=== PATIENT | male | born 1990 | race Caucasian/White ===

== ENCOUNTER 2021-09-09 23:04 | Emergency (ER) | payer OTHER, SELFPAY ==
--- NOTE | ~2021-09-09 | XR_ITS ---
EXAMINATION: XR CHEST CLINICAL INFORMATION: Chest pain COMPARISON: X-ray 11/22/2014 TECHNIQUE: Frontal view of the chest was obtained. FINDINGS: The lungs are well-expanded. There is no focal consolidation, edema or effusion. No pneumothorax. The cardiomediastinal silhouette is within normal limits. No acute osseous abnormality. XR/XR chest 1V IMPRESSION: No acute pulmonary disease.
[2021-09-09 23:32] LABS: COVID-19 Test Negative (Negative)
[2021-09-10 00:14] VITALS: BP 122/81; PULSE 83; RESP 16; TEMP 37.1; O2SAT 95; BMI 25.9
--- NOTE | 2021-09-10 00:17 | ED_ITS ---
HPI - URI/Sore Throat General Chief Complaint: General Medical Stated Complaint: Covid symptoms Time Seen by Provider: 09/10/21 00:16 Source: patient Mode of arrival: ambulatory Limitations: no limitations History of Present Illness MD elicited complaint: fever and other (doesn't feel well) Onset (ago): day(s) (3) Consistency: intermittent Severity: moderate Able to tolerate fluids by mouth: Yes Exacerbating factors: nothing Relieving factors: nothing Context: other (vaccine 3 weeks ago ) Associated symptoms: fever (only at night up to 101), myalgias, cough, shortness of breath and other (n/v) Treatments prior to arrival: none Related Data Previous Rx's Medication Instructions Recorded doxycycline hyclate 100 mg capsule 100 mg PO BID 10 Days #20 cap 09/10/21 Allergies Allergy/AdvReac Type Severity Reaction Status Date / Time PEANUT BUTTER Allergy Intermediate RASH, SOB Uncoded 08/18/20 16:06 PEANUTS Allergy Unknown ANAPHYLAXIS Uncoded 04/26/17 00:00 Review of Systems Review of Systems: Constitutional : No Weight loss, pos Fever, No Chills, pos Fatigue, pos Malaise ENT/Mouth : No sore throat, No Rhinorrhea Eyes: No Eye Pain, No Swelling, No Redness Cardiovascular : No Chest Pain, pos SOB, No Dyspnea on Exertion, No Orthopnea, No Edema, No Palpitations Respiratory : pos Cough, No Sputum, No Wheezing Gastrointestinal : No Nausea, No Vomiting, No Diarrhea, No Constipation, No abdominal Pain, No Hematochezia, No Melena Genitourinary : No Dysuria, No Urinary Frequency, No Hematuria, Musculoskeletal : No joint pain, pos Myalgias, No Joint Swelling Skin : No Skin Lesions, No rash Neuro : pos Weakness, No Numbness, No Dizziness, No Headache Psych : No Anxiety/Panic, No Depression Heme/Lymph: No Bruising, No Bleeding,No Lymphadenopathy Endocrine : No Polyuria, No Polydipsia All other systems reviewed and are negative [facility] Past Medical History Attestation statement: The following information was validated with the patient. Medical History No known health problems Social History Social History (Updated 09/10/21 @ 00:26 by Stefanie Andino DO) Patient Tobacco Use Status: Never used Tobacco Use of substances other than those prescribed or required for medical reasons: No Advance Directives: No Advance Directives Information Provided: Yes Physical Exam Vital Signs: Vital Signs: Last Vital Signs Temp 98.8 F 09/10/21 00:14 Pulse 83 09/10/21 00:14 Resp 16 09/10/21 00:14 BP 122/81 09/10/21 00:14 Pulse Ox 95 09/10/21 00:14 Body Mass Index 25.9 Appearance: Alert. Oriented X3. No acute distress. Eyes: Pupils equal, round and reactive to light. ENT: Pharynx normal. Neck: Normal inspection. Neck supple. CVS: Normal heart rate and rhythm. Pulses normal. Respiratory: No respiratory distress. Breath sounds normal. Abdomen: Soft and nontender. Skin: Skin warm and dry. Normal skin color. Normal skin turgor. Extremities: No lower extremity edema. No calf ttp Neuro: Oriented X 3. No motor deficit. No sensory deficit. Course Course Course Narrative: negative workup - stable for DC at this time will start on empiric doxy just in case he has lyme MDM - URI/Sore Throat MDM Narrative Medical decision making narrative: 31 yo male with a few days of fevers at night, coughing, feels short of breath symptoms at night, denies anything new other than Moderna vaccine he has no CP during the day. At this time he is PERC negative, he denies tick bites. Given his constellation of symptoms will obtain basic labs, lyme test, CXR for pneumonia, EKG and trop for myocarditis - dispo per results and findings. Lab Data Result diagrams: 09/10/21 00:39 09/10/21 00:39 Labs: Lab Results 09/09/21 09/10/21 09/10/21 Range/Units 23:09 00:39 00:39 WBC 9.5 (4.8-10.8) X10*3/uL RBC 5.15 (4.60-5.80) X10*6/uL Hgb 15.4 (14.0-18.0) g/dl Hct 45.9 (42-52) % MCV 89.1 (80-98) fL MCH 29.9 (27.0-33.0) pg MCHC 33.6 (31.0-36.0) g/dl RDW 12.4 (11.0-16.0) % Plt Count 262 (160-400) X10*3/uL MPV 8.9 L (9.4-12.4) fL Immature Gran % (Auto) 0.3 (0.0-0.4) % Neut % (Auto) 66.7 (45-73) % Lymph % (Auto) 16.6 L (20-40) % [place] % (Auto) 12.4 H (2-11) % Eos % (Auto) 3.5 (0-4) % Baso % (Auto) 0.5 (0-2) % Lymph # (Auto) 1.6 (1.2-4.9) X10*3/uL [place] # (Auto) 1.2 (0.1-1.2) X10*3/uL Eos # (Auto) 0.3 (0.0-0.4) X10*3/uL Baso # (Auto) 0.1 (0.0-0.2) X10*3/uL Abs Immat Gran (auto) 0.03 (0.00-0.03) X10*3/uL Absolute Neuts (auto) 6.3 (2.0-8.3) X10*3/uL Absolute Nucleated RBC 0.000 (0.0-0.012) X10*3/uL Nucleated RBC % (auto) 0.0 (0.0-0.2) /100WBC Sodium 140 (135-145) mmol/L Potassium 3.7 (3.3-5.1) mmol/L Chloride 105 (96-108) mmol/L Carbon Dioxide 27 (22-29) mmol/L Anion Gap 12 (12-20) BUN 10 (9-16) mg/dL Creatinine 1.16 (0.5-1.4) mg/dL Estim Creat Clear Calc 100.0 Estimated GFR > 60 Random Glucose 114 (60-115) mg/dL Calcium 9.6 (8.4-10.2) mg/dL Total Bilirubin 0.5 (0.0-1.0) mg/dL Direct Bilirubin 0.2 (0.0-0.5) mg/dL AST 22 (5-37) U/L ALT 32 (0-40) U/L Alkaline Phosphatase 75 (39-117) U/L Troponin I High Sens (<3.5-35.0) ng/L Total Protein 7.2 (6.5-8.0) g/dL Albumin 4.5 (3.5-5.0) g/dL COVID-19 (RUSS) Negative (Negative) COVID-19 Clin Com See Note 09/10/21 Range/Units 00:39 WBC (4.8-10.8) X10*3/uL RBC (4.60-5.80) X10*6/uL Hgb (14.0-18.0) g/dl Hct (42-52) % MCV (80-98) fL MCH (27.0-33.0) pg MCHC (31.0-36.0) g/dl RDW (11.0-16.0) % Plt Count (160-400) X10*3/uL MPV (9.4-12.4) fL Immature Gran % (Auto) (0.0-0.4) % Neut % (Auto) (45-73) % Lymph % (Auto) (20-40) % [place] % (Auto) (2-11) % Eos % (Auto) (0-4) % Baso % (Auto) (0-2) % Lymph # (Auto) (1.2-4.9) X10*3/uL [place] # (Auto) (0.1-1.2) X10*3/uL Eos # (Auto) (0.0-0.4) X10*3/uL Baso # (Auto) (0.0-0.2) X10*3/uL Abs Immat Gran (auto) (0.00-0.03) X10*3/uL Absolute Neuts (auto) (2.0-8.3) X10*3/uL Absolute Nucleated RBC (0.0-0.012) X10*3/uL Nucleated RBC % (auto) (0.0-0.2) /100WBC Sodium (135-145) mmol/L Potassium (3.3-5.1) mmol/L Chloride (96-108) mmol/L Carbon Dioxide (22-29) mmol/L Anion Gap (12-20) BUN (9-16) mg/dL Creatinine (0.5-1.4) mg/dL Estim Creat Clear Calc Estimated GFR Random Glucose (60-115) mg/dL Calcium (8.4-10.2) mg/dL Total Bilirubin (0.0-1.0) mg/dL Direct Bilirubin (0.0-0.5) mg/dL AST (5-37) U/L ALT (0-40) U/L Alkaline Phosphatase (39-117) U/L Troponin I High Sens < 3.5 (<3.5-35.0) ng/L Total Protein (6.5-8.0) g/dL Albumin (3.5-5.0) g/dL COVID-19 (RUSS) (Negative) COVID-19 Clin Com ECG Data Attestation: I personally reviewed and interpreted this ECG as follows: ECG interpretation date: 09/10/21 ECG interpretation time: 01:05 Interpretation: Rate: 82 Rhythm: NSR [place]: normal Normal P waves. Normal [place]. Normal QRS complex. ST T wave : normal no TALIA qTC: normal prior studies: no acute ischemia The study has been interpreted contemporaneously by me. . Discharge Plan Discharge Clinical Impression: Acute viral syndrome Patient Disposition: Home, Self-Care Instructions: Viral Syndrome (ED) Additional Instructions: return to ED for any worsening symptoms or concerns we will call you with your lyme results but it takes 5 to 7 days your covid test and blood working including heart markers were negative, your EKG and chest xray were normal Prescriptions: New doxycycline hyclate 100 mg capsule 100 mg PO BID 10 Days Qty: 20 RF: 0 Referrals: Physician,Unknown J [Primary Care Provider] - 3 days (PCP in 3 days) Stand Alone Forms: Work/School Release
--- NOTE | 2021-09-10 00:22 | ECG_ITS ---
Test Reason : CHEST PAIN Blood Pressure : / mmHG Vent. Rate : 082 BPM Atrial Rate : 082 BPM P-R Int : 154 ms QRS Dur : 080 ms QT Int : 350 ms P-R-T Axes : 045 027 033 degrees QTc Int : 408 ms Normal sinus rhythm with sinus arrhythmia Normal ECG When compared with ECG of 22-NOV-2014 00:50, No significant change was found Referred By: Stefanie Andino Electronically Signed By:FABIOLA SANABRIA MD
[2021-09-10 00:44] LABS: MANUAL DIFF FLAG NO
[2021-09-10 00:46] LABS: Basophils Absolute Auto 0.1 X10*3/uL (0.0-0.2); Basophils Percent Auto 0.5 % (0-2); Eosinophils Absolute Auto 0.3 X10*3/uL (0.0-0.4); Eosinophils Percent Auto 3.5 % (0-4); Hematocrit 45.9 % (42-52); Hemoglobin 15.4 g/dl (14.0-18.0); Imm Gran Abs Auto 0.03 X10*3/uL (0.00-0.03); Imm Gran Pct Auto 0.3 % (0.0-0.4); Lymphocytes Absolute Auto 1.6 X10*3/uL (1.2-4.9); Lymphocytes Percent Auto 16.6 % (20-40); Mean Corpuscular HGB Conc 33.6 g/dl (31.0-36.0); Mean Corpuscular Hemoglobin 29.9 pg (27.0-33.0); Mean Corpuscular Volume 89.1 fL (80-98); Mean Platelet Volume 8.9 fL (9.4-12.4); Monocytes Absolute Auto 1.2 X10*3/uL (0.1-1.2); Monocytes Percent Auto 12.4 % (2-11); Neutrophils Absolute Auto 6.3 X10*3/uL (2.0-8.3); Neutrophils Percent Auto 66.7 % (45-73); Platelet Count 262 X10*3/uL (160-400); Red Blood Count 5.15 X10*6/uL (4.60-5.80); Red Cell Distribution Width 12.4 % (11.0-16.0); White Blood Count 9.5 X10*3/uL (4.8-10.8)
[2021-09-10 01:03] LABS: Alanine Aminotransferase 32 U/L (0-40); Albumin Level 4.5 g/dL (3.5-5.0); Alkaline Phosphatase 75 U/L (39-117); Anion Gap 12 (12-20); Aspartate Amino Transferase 22 U/L (5-37); Bilirubin Direct 0.2 mg/dL (0.0-0.5); Bilirubin Total 0.5 mg/dL (0.0-1.0); Blood Urea Nitrogen 10 mg/dL (9-16); Calcium 9.6 mg/dL (8.4-10.2); Carbon Dioxide 27 mmol/L (22-29); Chloride 105 mmol/L (96-108); Estimated Glomerular Filt Rate > 60; Glucose Random 114 mg/dL (60-115); Potassium 3.7 mmol/L (3.3-5.1); Sodium 140 mmol/L (135-145); Total Protein 7.2 g/dL (6.5-8.0)
[2021-09-10 01:06] LABS: Troponin-I High Sensitivity < 3.5 ng/L (<3.5-35.0)
--- NOTE | 2021-09-10 01:22 | PC.NURSE ---
PT WAS ALREADY D/C BEFORE MEDICATION WAS PUT IN COMPUTER. PT NOTE IN WAITING ROOM. PT MEDICATION SENT TO PHARMACY.
[2021-09-12 01:11] LABS: Lyme Abs Screen <0.90 index
== END 2021-09-10 01:21 | disposition home or self-care (01) ==
PROVIDERS: Emergency Provider Emergency Medicine
DX: B34.9 Viral infection, unspecified (principal); R50.9 Fever, unspecified; M79.10 Myalgia, unspecified site; R05.9 Cough, unspecified; R06.02 Shortness of breath; Z79.899 Other long term (current) drug therapy; Z20.822 Contact with and (suspected) exposure to COVID-19
CPT/HCPCS: 36415; 71045; 80048; 80076; 84484; 85025; 86617; 86618; 87635; 93005; 99283

== ENCOUNTER 2022-02-07 21:10 | Emergency (ER) | payer OTHER, SELFPAY ==
[2022-02-07 21:25] VITALS: BP 145/77; PULSE 68; RESP 16; TEMP 36.6; O2SAT 97; BMI 27.6
--- NOTE | 2022-02-07 22:45 | ED_ITS ---
HPI - Abdominal Pain General Chief Complaint: Abdominal Pain Stated Complaint: Abdominal pain Source: patient Mode of arrival: ambulatory Limitations: no limitations History of Present Illness HPI narrative: 31-year-old male presents with left-sided abdominal pain and diarrhea for approximately 2 days. Loose stools started this morning at around 05:00. Patient stated that he did eat some [employer] food yesterday, does not report any sick contacts. Denies fevers, chills, travel outside the country, nausea, vomi ting, palpitations, chest pain or pressure, or any other concerning symptoms. MD elicited complaint: abdominal pain Onset (ago): day(s) (2) Pain Consistency: constant Location: LLQ Severity: moderate Pain scale (0-10): 4 Quality: cramping and aching Radiation: none Exacerbating factors: bowel movement and movement Relieving factors: nothing Context: possible food poisoning Associated symptoms: diarrhea Related Data Previous Rx's Medication Instructions Recorded doxycycline hyclate 100 mg capsule 100 mg PO BID 10 Days #20 cap 09/10/21 Allergies Allergy/AdvReac Type Severity Reaction Status Date / Time PEANUT BUTTER Allergy Intermediate RASH, SOB Uncoded 08/18/20 16:06 PEANUTS Allergy Unknown ANAPHYLAXIS Uncoded 04/26/17 00:00 Review of Systems Review of Systems Constitutional: No Weight loss, No Fever, No Chills, No Night Sweats, No Fatigue, No Malaise ENT/Mouth: No Hearing loss, No Ear Pain, No Nasal Congestion, No Sinus Pain, No Hoarseness, No sore throat, No Rhinorrhea, No Swallowing Difficulty Eyes: No Eye Pain, No Swelling, No Redness, No Foreign Body, No Discharge, No Vision Changes Cardiovascular: No Chest Pain, No SOB, No Dyspnea on Exertion, No Orthopnea, No Edema, No Palpitations Respiratory: No Cough, No Sputum, No Wheezing, No Smoke Exposure, No Dyspnea Gastrointestinal: No Nausea, no Vomiting, positive Diarrhea, positive abdominal Pain, No Hematochezia, No Melena Genitourinary: no irregular bleeding, No Dysuria, No Urinary Frequency, No Hematuria, No Urinary Incontinence, No Urgency, No Flank Pain, No Urinary Flow Changes, No Hesitancy Musculoskeletal: No joint pain, No Myalgias, No Joint Swelling Skin: No Skin Lesions, No rash Neuro: No Weakness, No Numbness, No Paresthesias, No Loss of Consciousness, No Dizziness, No Headache Psych: No Anxiety/Panic, No Depression, No SI/HI/AH/VH, No Social Issues Heme/Lymph: No Bruising, No Bleeding,No Lymphadenopathy Endocrine: No Polyuria, No Polydipsia, No Temperature Intolerance Yes all other systems are reviewed and are negative [facility] [place] Past Medical History Attestation statement: The following information was validated with the patient. Source: old records reviewed Medical History No known health problems Social History Social History Patient Tobacco Use Status: Never used Tobacco Advance Directives: No Physical Exam ED Vital Signs: Vital Signs - 24 hr 02/07/22 21:25 02/07/22 23:06 Temperature 97.8 F 98 F Pulse Rate 68 64 Respiratory Rate 16 16 Blood Pressure 145/77 H 104/63 Pulse Oximetry 97 98 BMI result Body Mass Index 27.6 Appearance: Alert. Oriented X3. No acute distress. Eyes: Pupils equal, round and reactive to light. EOMI. Sclera nonicteric. ENT: Pharynx normal. Moist mucous membranes. Neck: Normal inspection. Neck supple. CVS: Normal heart rate and rhythm. Respiratory: No respiratory distress. Abdomen: Soft and nontender. Skin: Skin warm and dry. Normal skin color. Normal skin turgor. Extremities: No lower extremity edema. Gait well-balanced well coordinated. Neuro: No motor deficit. No sensory deficit. Cranial nerves 2-12 intact. Course Course Course Narrative: 31-year-old male presents with approximately 2 days of gastrointestinal symptoms after eating [employer] food. Has had 1 episode of loose stools, is afebrile, appears nontoxic, in no prior history of kidney stones or abdominal surgery. Physical exam is unremarkable. Will order lab values, urinalysis, SARs COVID and influenza swab. Should labs indicate infection or abnormality will pursue imaging. At this time patient is able to eat and drink, and patient does agree with this plan. 00:10 CBC chemistry and urinalysis is negative for acute findings requiring emergent intervention. Serology pending. 00:30 SARs influenza COVID negative. Symptoms Most likely due to gastroenteritis or possible food-borne illness. Patient does understand that if symptoms worsen that he should return for further evaluation. Patient verbalized understanding of and agrees to plan of care to discharge home. Verbalized understanding of signs and symptoms indicating need for emergent intervention MDM - Abdominal Pain Differential Diagnosis Differential diagnosis: Likely abdominal pain, gastroenteritis and gastritis Medical Records Attestation: I reviewed the patient's medical records. Lab Data Attestation: I reviewed the patient's lab results. Result diagrams: 02/07/22 23:27 02/07/22 23:27 Labs: Lab Results 02/07/22 02/07/22 02/07/22 Range/Units 23:27 23:27 23:27 WBC 9.4 (4.8-10.8) X10*3/uL RBC 5.19 (4.60-5.80) X10*6/uL Hgb 15.3 (14.0-18.0) g/dl Hct 46.7 (42.0-52.0) % MCV 90.0 (80.0-98.0) fL MCH 29.5 (27.0-33.0) pg MCHC 32.8 (31.0-36.0) g/dl RDW 12.6 (11.0-16.0) % Plt Count 312 (160-400) X10*3/uL MPV 9.2 L (9.4-12.4) fL Immature Gran % (Auto) 0.2 (0.0-0.4) % Neut % (Auto) 53.7 (45-73) % Lymph % (Auto) 32.7 (20-40) % [place] % (Auto) 6.8 (2-11) % Eos % (Auto) 6.0 H (0-4) % Baso % (Auto) 0.6 (0-2) % Lymph # (Auto) 3.1 (1.2-4.9) X10*3/uL [place] # (Auto) 0.6 (0.1-1.2) X10*3/uL Eos # (Auto) 0.6 H (0.0-0.4) X10*3/uL Baso # (Auto) 0.1 (0.0-0.2) X10*3/uL Abs Immat Gran (auto) 0.02 (0.00-0.03) X10*3/uL Absolute Neuts (auto) 5.0 (2.0-8.3) x10*3/uL Absolute Nucleated RBC 0.000 (0.0-0.012) X10*3/uL Nucleated RBC % (auto) 0.0 (0.0-0.2) /100WBC Sodium 141 (135-145) mmol/L Potassium 4.1 (3.3-5.1) mmol/L Chloride 105 (96-108) mmol/L Carbon Dioxide 29 (22-29) mmol/L Anion Gap 11 L (12-20) BUN 14 (9-16) mg/dL Creatinine 1.07 (0.5-1.4) mg/dL Estim Creat Clear Calc 108.4 Estimated GFR > 60 Random Glucose 106 (60-115) mg/dL Calcium 9.6 (8.4-10.2) mg/dL Urine Color YELLOW Urine Appearance CLEAR Urine pH 6.0 (5.0-8.0) Ur Specific [place] 1.025 (1.005-1.025) Urine Protein NEG (NEG-TRACE) MG/DL Urine Glucose (UA) NEG (NEG) MG/DL Urine Ketones NEG (NEG) MG/DL Urine Blood NEG (NEG) Urine Nitrite NEG (NEG) Ur Leukocyte Esterase NEG (NEG) Influenza Type A (PCR) (Negative) Influenza Type B (PCR) (Negative) RSV RNA Qual (PCR) (Negative) SARS-CoV-2 RNA (RT-PCR) (Negative) 02/07/22 Range/Units 23:29 WBC (4.8-10.8) X10*3/uL RBC (4.60-5.80) X10*6/uL Hgb (14.0-18.0) g/dl Hct (42.0-52.0) % MCV (80.0-98.0) fL MCH (27.0-33.0) pg MCHC (31.0-36.0) g/dl RDW (11.0-16.0) % Plt Count (160-400) X10*3/uL MPV (9.4-12.4) fL Immature Gran % (Auto) (0.0-0.4) % Neut % (Auto) (45-73) % Lymph % (Auto) (20-40) % [place] % (Auto) (2-11) % Eos % (Auto) (0-4) % Baso % (Auto) (0-2) % Lymph # (Auto) (1.2-4.9) X10*3/uL [place] # (Auto) (0.1-1.2) X10*3/uL Eos # (Auto) (0.0-0.4) X10*3/uL Baso # (Auto) (0.0-0.2) X10*3/uL Abs Immat Gran (auto) (0.00-0.03) X10*3/uL Absolute Neuts (auto) (2.0-8.3) x10*3/uL Absolute Nucleated RBC (0.0-0.012) X10*3/uL Nucleated RBC % (auto) (0.0-0.2) /100WBC Sodium (135-145) mmol/L Potassium (3.3-5.1) mmol/L Chloride (96-108) mmol/L Carbon Dioxide (22-29) mmol/L Anion Gap (12-20) BUN (9-16) mg/dL Creatinine (0.5-1.4) mg/dL Estim Creat Clear Calc Estimated GFR Random Glucose (60-115) mg/dL Calcium (8.4-10.2) mg/dL Urine Color Urine Appearance Urine pH (5.0-8.0) Ur Specific [place] (1.005-1.025) Urine Protein (NEG-TRACE) MG/DL Urine Glucose (UA) (NEG) MG/DL Urine Ketones (NEG) MG/DL Urine Blood (NEG) Urine Nitrite (NEG) Ur Leukocyte Esterase (NEG) Influenza Type A (PCR) NEGATIVE (Negative) Influenza Type B (PCR) NEGATIVE (Negative) RSV RNA Qual (PCR) NEGATIVE (Negative) SARS-CoV-2 RNA (RT-PCR) NEGATIVE (Negative) Discharge Plan Discharge Clinical Impression: Gastroenteritis Patient Disposition: Home, Self-Care Instructions: Gastroenteritis (ED) Additional Instructions: You were evaluated for abdominal pain and 1 episode of loose stools. Your lab values are normal. Please drink plenty of fluids. The primary care physician as needed. Thank you for choosing this emergency department for evaluation. Please follow-up with primary care physician as needed. Return to the emergency department for any new, concerning, or worsening symptoms. Prescriptions: No Action doxycycline hyclate 100 mg capsule 100 mg PO BID 10 Days Qty: 20 0RF Stand Alone Forms: Work/School Release
[2022-02-07 23:06] VITALS: BP 104/63; PULSE 64; RESP 16; TEMP 36.6; O2SAT 98
[2022-02-07 23:34] LABS: MANUAL DIFF FLAG NO
[2022-02-07 23:35] LABS: Basophils Absolute Auto 0.1 X10*3/uL (0.0-0.2); Basophils Percent Auto 0.6 % (0-2); Eosinophils Absolute Auto 0.6 X10*3/uL (0.0-0.4); Hematocrit 46.7 % (42.0-52.0); Hemoglobin 15.3 g/dl (14.0-18.0); Imm Gran Abs Auto 0.02 X10*3/uL (0.00-0.03); Imm Gran Pct Auto 0.2 % (0.0-0.4); Lymphocytes Absolute Auto 3.1 X10*3/uL (1.2-4.9); Lymphocytes Percent Auto 32.7 % (20-40); Mean Corpuscular HGB Conc 32.8 g/dl (31.0-36.0); Mean Corpuscular Hemoglobin 29.5 pg (27.0-33.0); Mean Platelet Volume 9.2 fL (9.4-12.4); Monocytes Absolute Auto 0.6 X10*3/uL (0.1-1.2); Monocytes Percent Auto 6.8 % (2-11); Neutrophils Percent Auto 53.7 % (45-73); Platelet Count 312 X10*3/uL (160-400); Red Blood Count 5.19 X10*6/uL (4.60-5.80); Red Cell Distribution Width 12.6 % (11.0-16.0); White Blood Count 9.4 X10*3/uL (4.8-10.8)
[2022-02-07 23:36] LABS: Appearance Urine CLEAR; Color Urine YELLOW; Glucose Urine UA NEG (NEG); Leukocyte Esterase Urine NEG (NEG); Nitrite Urine NEG (NEG); Specific Gravity - Urine 1.025 (1.005-1.025); Urine Blood NEG (NEG); Urine Ketones NEG (NEG); Urine Protein NEG (NEG-TRACE)
[2022-02-07 23:50] LABS: Anion Gap 11 (12-20); Blood Urea Nitrogen 14 mg/dL (9-16); Calcium 9.6 mg/dL (8.4-10.2); Carbon Dioxide 29 mmol/L (22-29); Chloride 105 mmol/L (96-108); Creatinine Clr Calc Pharmacy 108.4; Estimated Glomerular Filt Rate > 60; Glucose Random 106 mg/dL (60-115); Potassium 4.1 mmol/L (3.3-5.1); Sodium 141 mmol/L (135-145)
[2022-02-08 00:14] LABS: Influenza A PCR NEGATIVE (Negative); Influenza B PCR NEGATIVE (Negative); Resp Syncy Virus RNA Qual PCR NEGATIVE (Negative); SARS COV2 PCR INHOUSE NEGATIVE (Negative)
[2022-02-08 00:56] VITALS: BP 111/80; PULSE 63; RESP 16; TEMP 36.7; O2SAT 96
== END 2022-02-08 01:11 | disposition home or self-care (01) ==
PROVIDERS: Nurse Practitioner Family; Emergency Provider Emergency Medicine Emergency Medical Services
DX: K52.9 Noninfective gastroenteritis and colitis, unspecified (principal); R10.32 Left lower quadrant pain; Z20.822 Contact with and (suspected) exposure to COVID-19; Z79.899 Other long term (current) drug therapy
CPT/HCPCS: 0241U; 36415; 80048; 81003; 85025; 99283

== ENCOUNTER 2022-05-26 18:55 | Emergency (ER) | payer OTHER, SELFPAY ==
[2022-05-26 18:58] VITALS: BP 134/97; PULSE 134; RESP 22; TEMP 37; O2SAT 97; BMI 25.0
--- NOTE | 2022-05-26 18:59 | ED.ALLEREA ---
HPI - Allergic Reaction General Chief complaint: Allergic Reaction Stated complaint: Allergic reaction/SOB tongue swelling Source: patient Mode of arrival: ambulatory Limitations: no limitations History of Present Illness HPI narrative: 32-year-old male presents with swollen tongue and voice change after a known peanut exposure. 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 Patient was at a graduation constitution party, ate a piece of cake and noted tongue tingling and swelling, then spit out the cake without swallowing it. He is speaking in full sentences and managing his secretions in triage however he does have hot potato voice and angioedema. Patient's fiancee is a nurse and gave him 50 mg of Benadryl prior to arrival. Does not have an EpiPen at this time. MD complaint: allergic reaction and facial swelling Onset (ago): minute(s) (15 minutes) Exposure: food Known history of allergy to: Peanuts Symptoms: facial swelling, tongue swelling and hoarseness Severity: severe Treatment prior to arrival: benadryl Previous Allergic Reaction History: anaphylaxis and angioedema Related Data Previous Rx's Medication Instructions Recorded doxycycline hyclate 100 mg capsule 100 mg PO BID 10 days #20 caps 09/10/21 diphenhydramine HCl 25 mg capsule 50 mg PO TID 3 days #18 caps 05/27/22 (Benadryl) epinephrine 0.3 mg/0.3 mL 0.3 mg (0.3 mL) IM Q10M PRN 05/27/22 injection, auto-injector (EpiPen anaphylaxis #2 ea 2-Tom) famotidine 20 mg tablet (Pepcid) 20 mg PO BID 3 days #6 tabs 05/27/22 Allergies Allergy/AdvReac Type Severity Reaction Status Date / Time PEANUT BUTTER Allergy Intermediate RASH, SOB Uncoded 08/18/20 16:06 PEANUTS Allergy Unknown ANAPHYLAXIS Uncoded 04/26/17 00:00 Review of Systems Review of Systems: Constitutional: No Fever, No Chills ENT/Mouth: positive tongue swelling, positive Hoarseness, No Swallowing Difficulty Eyes: No Eye Pain, No Swelling, No Redness Cardiovascular: No Chest Pain, No SOB Respiratory: No Cough, No Sputum, positive Wheezing, No Smoke Exposure, No Dyspnea Gastrointestinal: No Nausea, No Vomiting, No Diarrhea, No abdominal Pain Genitourinary: No Dysuria, No Urinary Frequency, No Hematuria Muscular skeletal: No joint pain, No Myalgias, No Joint Swelling Skin: No Skin Lesions, no rash Neuro: No Weakness, No Numbness, No Headache Psych: No Anxiety/Panic, No Depression Heme/Lymph: No Bruising, No Lymphadenopathy Endocrine: No Polyuria, No Polydipsia Yes all other systems are reviewed and are negative [facility] Past Medical History Attestation statement: The following information was validated with the patient. Source: old records reviewed Medical History No known health problems Social History Social History Patient Tobacco Use Status: Never used Tobacco Advance Directives: No Advance Directives Information Provided: No Physical Exam ED Vital Signs: Vital Signs - 24 hr 05/26/22 18:58 05/26/22 19:21 05/26/22 20:01 Temperature 98.6 F 98.8 F 98.0 F Pulse Rate 134 H 116 H 113 H Respiratory Rate 22 H 16 22 H Blood Pressure 134/97 H 135/76 112/62 Pulse Oximetry 97 98 98 Oxygen Delivery Method Room Air Room Air Room Air 05/26/22 22:39 Temperature Pulse Rate 90 Respiratory Rate 24 H Blood Pressure 106/55 L Pulse Oximetry 96 Oxygen Delivery Method Room Air BMI result Body Mass Index 25.0 Appearance: Alert. Oriented X3. Moderate distress. Eyes: Pupils equal, round and reactive to light. EOMI. Sclera nonicteric. ENT: Pharynx edematous, tongue swollen, lip swollen Neck: Normal inspection. Neck supple. CVS: Tachycardic heart rate and rhythm. Apical pulse equal pulses to extremities. Respiratory: Tachypneic. Expiratory wheezing with tracheal stridor. Abdomen: Soft and nontender. Skin: Skin warm and dry. Normal skin color. Normal skin turgor. Extremities: Gait well-balanced well coordinated. Neuro: No motor deficit. No sensory deficit. Cranial nerves 2-12 intact. Course Course Course Narrative: 32-year-old male presents for anaphylaxis to peanuts. Immediately brought back for treatment. 18 gauge left AC by this [employer]GR[employer]Y TE[employer]ER. First attempt. Given Solu-Medrol 125 mg, famotidine 20 mg, Benadryl 25 mg, by this AGRONOMY TEACHER. Epinephrine 0.3 IM to right thigh by RN. Tracheal stridor diminished status post epinephrine and IV medications. Oropharyngeal exam consistent with Mallampati 4. Unable to visualize uvula. 19:15 2nd dose of epi 0.3 verbally ordered by this AGRONOMY TEACHER to RN. 19:30 tracheal stridor and wheezing no longer present. pharyngeal exam consistent with Mallampati 2. Uvula non edematous. Left side of tongue larger than right side. Patient able to manage secretions. Voice is changing to his baseline. 20:00 lung sounds clear to auscultation all lobes. Left side of tongue still swollen. Able to manage secretions. No tracheal stridor 20:30 lungs continue to be clear, left side of tongue is still swollen, continues to manage secretions. 21:30 even unlabored respirations. Voice still altered. Tongue in the large on the left side. Able to manage secretions. No tracheal stridor. Lung sounds clear to auscultation all lobes. Dr. Sosa at bedside to assess as well. Will continue to monitor, if patient maintains airway will consider discharging home. 00:00. Heart rate in the 80s, lung sounds clear to auscultation all lobes, even unlabored respirations. Mallampati 1. Tongue no longer swollen. Plan of care is to discharge home with epinephrine pen, Benadryl 50 Q 8, and Pepcid 20 mg b.i.d. for 3 days. Patient does understand the importance of carrying an EpiPen with him at all times. Patient verbalized understanding of and agrees plan of care discharge home. Verbalized understanding of signs and symptoms indicating need for emergent intervention. MDM - Allergic Reaction Differential Diagnosis Differential diagnosis: Likely anaphylaxis, allergic reaction and angioedema Medical Records Attestation: I reviewed the patient's medical records. Critical Care Time Critical Care Time Critical Care Time: Yes Total Critical Care Time: 45 Attestation: I have personally provided critical care time exclusive of time spent on separately billable procedures. Time includes review of laboratory data, radiology results, discussion with consultants, and monitoring for potential decompensation. Interventions were performed as documented. Discharge Plan Discharge Clinical Impression: Anaphylaxis Patient Disposition: Home, Self-Care Instructions: Food Allergy (ED), Anaphylaxis (ED), Peanut Allergy (ED) Additional Instructions: You were evaluated for an anaphylactic reaction. You must carry an EpiPen with you at all times. Take Benadryl 50 mg every 8 hours for the next 3 days. Take Pepcid 20 mg every 12 hours for the next 3 days. Follow up with primary care physician this week or as needed. Thank you for choosing this emergency department for evaluation. Please follow-up with primary care physician as needed. Return to the emergency department for any new, concerning, or worsening symptoms. Prescriptions: New epinephrine [EpiPen 2-Tom] 0.3 mg/0.3 mL auto-injector 0.3 mg IM Q10M PRN (Reason: anaphylaxis) Qty: 2 3RF diphenhydramine HCl [Benadryl] 25 mg capsule 50 mg PO TID 3 Days Qty: 18 0RF famotidine [Pepcid] 20 mg tablet 20 mg PO BID 3 Days Qty: 6 0RF No Action doxycycline hyclate 100 mg capsule 100 mg PO BID 10 Days Qty: 20 0RF Stand Alone Forms: Work/School Release
[2022-05-26] MEDS: methylPREDNISolone Sod Succ 125 MG/2 ML VIAL IVPUSH (19:12)
[2022-05-26] MEDS: EPINEPHrine 1 MG/ML VIAL 0.3 MG IM ×2 (19:12→19:17)
[2022-05-26] MEDS: diphenhydrAMINE HCL 50 MG/ML VIAL IVPUSH (19:13)
[2022-05-26] MEDS: Famotidine/PF 20 MG/2 ML VIAL IVPUSH (19:13)
[2022-05-26] MEDS: 0.9 % Sodium Chloride 1,000 ML 999 ML IVCONT (19:17)
[2022-05-26 19:21] VITALS: BP 135/76; PULSE 116; RESP 16; TEMP 37.1; O2SAT 98
--- NOTE | 2022-05-26 19:23 | PC.NURSE ---
Rosio KIMBROUGH evaluated pt multiple times, and noted that Mallampati score for pt has decreased from 4 to 3 to now 2.
[2022-05-26 20:01] VITALS: BP 112/62; PULSE 113; RESP 22; TEMP 36.7; O2SAT 98
[2022-05-26] MEDS: diphenhydrAMINE HCL 50 MG/ML VIAL 25 MG IVPUSH (20:24)
[2022-05-26] MEDS: 0.9 % Sodium Chloride 1,000 ML 999 ML IV (20:28)
[2022-05-26 22:39] VITALS: BP 106/55; PULSE 90; RESP 24; O2SAT 96
[2022-05-27 00:30] VITALS: BP 119/63; PULSE 77; RESP 24; O2SAT 96
== END 2022-05-27 00:36 | disposition home or self-care (01) ==
PROVIDERS: Emergency Provider Emergency Medicine
DX: T78.01XA Anaphylactic reaction due to peanuts, initial encounter (principal); R06.1 Stridor; R22.9 Localized swelling, mass and lump, unspecified; Z79.899 Other long term (current) drug therapy
CPT/HCPCS: 96361; 96372; 96374; 96375; 96376; 99283; 99284; J0171; J1200; J2930

== ENCOUNTER 2022-07-01 22:27 | Emergency (ER) | payer SELFPAY ==
[2022-07-01 22:38] VITALS: BP 130/80; PULSE 61; RESP 16; TEMP 36.9; O2SAT 97; BMI 24.1
[2022-07-01 23:05] LABS: COVID-19 Test Negative (Negative)
--- NOTE | 2022-07-01 23:12 | ED.GENADULT ---
HPI - General Adult General Chief complaint: General Medical Stated complaint: Flu like symptoms Time Seen by Provider: 07/01/22 23:12 Source: patient Mode of arrival: ambulatory Limitations: no limitations History of Present Illness HPI narrative: Patient exposed to patients with COVID last week for last few days noticed headache body aches shortness of breath saturating 100% at room no cough mild sore throat duration no fever or chills. Patient got PCR test done last week which was negative Related Data Previous Rx's Medication Instructions Recorded doxycycline hyclate 100 mg capsule 100 mg PO BID 10 days #20 caps 09/10/21 diphenhydramine HCl 25 mg capsule 50 mg PO TID 3 days #18 caps 05/27/22 (Benadryl) epinephrine 0.3 mg/0.3 mL 0.3 mg (0.3 mL) IM Q10M PRN 05/27/22 injection, auto-injector (EpiPen anaphylaxis #2 ea 2-Tom) famotidine 20 mg tablet (Pepcid) 20 mg PO BID 3 days #6 tabs 05/27/22 Allergies Allergy/AdvReac Type Severity Reaction Status Date / Time PEANUT BUTTER Allergy Intermediate RASH, SOB Uncoded 08/18/20 16:06 PEANUTS Allergy Unknown ANAPHYLAXIS Uncoded 04/26/17 00:00 Review of Systems Review of Systems: Yes all other systems are reviewed and are negative [facility] Past Medical History Medical History No known health problems Social History Social History Patient Tobacco Use Status: Never used Tobacco Advance Directives: No Advance Directives Information Provided: No Physical Exam ED Vital Signs: Vital Signs - 24 hr 07/01/22 22:38 07/01/22 23:14 Temperature 98.4 F 97.9 F Pulse Rate 61 58 Respiratory Rate 16 16 Blood Pressure 130/80 120/70 Pulse Oximetry 97 98 Oxygen Delivery Method Room Air BMI result Body Mass Index 24.1 Appearance: Alert. Oriented X3. No acute distress. ENT: Pharynx normal. Oral Mucosa moist Neck: Normal inspection. CVS: Normal heart rate and rhythm. Pulses normal. Respiratory: No respiratory distress. Equal air entry bilateral, no wheezing/rales/rhonchi Abdomen: Soft and nontender. Bowel sounds are present, Skin: Skin warm and dry. Normal skin color. Normal skin turgor. Extremities: No lower extremity edema. No calf tenderness Neuro: Oriented X 3. No motor deficit. Medical Decision Making Lab Data Lab results reviewed: Yes I reviewed the patient's lab results. Labs: Lab Results 07/01/22 Range/Units 22:44 COVID-19 ([facility]) Negative (Negative) COVID-19 Clin Com See Note Discharge Plan Discharge Clinical Impression: Close exposure to 2019-nCoV, URI (upper respiratory infection) Patient Disposition: Home, Self-Care Instructions: Upper Respiratory Infection (ED) Additional Instructions: Your COVID test is negative Follow up with PCP if any concerns Recheck COVID testing in 2 days if symptoms continues Prescriptions: No Action doxycycline hyclate 100 mg capsule 100 mg PO BID 10 Days Qty: 20 0RF epinephrine [EpiPen 2-Tom] 0.3 mg/0.3 mL auto-injector 0.3 mg IM Q10M PRN (Reason: anaphylaxis) Qty: 2 3RF diphenhydramine HCl [Benadryl] 25 mg capsule 50 mg PO TID 3 Days Qty: 18 0RF famotidine [Pepcid] 20 mg tablet 20 mg PO BID 3 Days Qty: 6 0RF Stand Alone Forms: Work/School Release
[2022-07-01 23:14] VITALS: BP 120/70; PULSE 58; RESP 16; TEMP 36.6; O2SAT 98
--- NOTE | 2022-07-01 23:17 | PC.NURSE ---
ED doctor evaluating pt now
== END 2022-07-01 23:37 | disposition home or self-care (01) ==
PROVIDERS: Emergency Provider Internal Medicine
DX: J06.9 Acute upper respiratory infection, unspecified (principal); R51.9 Headache, unspecified; M79.10 Myalgia, unspecified site; R06.02 Shortness of breath; Z20.822 Contact with and (suspected) exposure to COVID-19; Z79.899 Other long term (current) drug therapy
CPT/HCPCS: 87635; 99284

== ENCOUNTER 2023-10-24 04:33 | Emergency (ER) | payer OTHER, SELFPAY ==
--- NOTE | ~2023-10-24 | XR_ITS ---
EXAMINATION: XR KNEE, RIGHT CLINICAL INFORMATION: Fall COMPARISON: 12/23/2017 TECHNIQUE: Four views of the right knee. FINDINGS: Osseous alignment is anatomic. Joint spaces are maintained. No acute fracture is seen. No significant joint effusion. XR/XR knee RT 4V IMPRESSION: No acute findings.
[2023-10-24 04:37] VITALS: BP 139/85; PULSE 84; RESP 14; TEMP 36.8; O2SAT 98; BMI 27.2
[2023-10-24 04:59] VITALS: BP 130/80; PULSE 84; RESP 16; TEMP 36.7; O2SAT 95
--- NOTE | 2023-10-24 05:04 | ED_ITS ---
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 complaining of pain in the right knee no other injury Related Data Previous Rx's Medication Instructions Recorded doxycycline hyclate 100 mg capsule 100 mg PO BID 10 days #20 caps 09/10/21 diphenhydramine HCl 25 mg capsule 50 mg (2 x 25 mg) PO TID 3 days 05/27/22 (Benadryl) #18 caps epinephrine 0.3 mg/0.3 mL 0.3 mg (0.3 mL) IM Q10M PRN 05/27/22 injection, auto-injector (EpiPen anaphylaxis #2 ea 2-Tom) famotidine 20 mg tablet (Pepcid) 20 mg PO BID 3 days #6 tabs 05/27/22 ibuprofen 600 mg tablet 600 mg PO Q6H PRN fever or pain 10/24/23 #30 tabs Allergies Allergy/AdvReac Type Severity Reaction Status Date / Time PEANUT BUTTER Allergy Intermediate RASH, SOB Uncoded 08/18/20 16:06 PEANUTS Allergy Unknown ANAPHYLAXIS Uncoded 04/26/17 00:00 Review of Systems 2 Review of Systems: Yes all other systems are reviewed and are negative PMFSH Past Medical History Medical History No known health problems Social History Patient Tobacco Use Status: Never used Tobacco Advance Directives: No Advance Directives Information Provided: No Physical Exam 2 Vital Signs: Vital Signs: Last Vital Signs Temp 98.1 F 10/24/23 04:59 Pulse 84 10/24/23 04:59 Resp 16 10/24/23 04:59 BP 130/80 10/24/23 04:59 Pulse Ox 95 10/24/23 04:59 O2 Del Method Room Air 10/24/23 04:59 BMI result Body Mass Index 27.2 Extrem: Knee images: 1. Right knee joint no effusion good range of movement Jose sign anterior drawer sign negative tenderness on the lateral aspect of right knee patient ambulatory Medications Administered Discontinued Medications Generic Name Dose Route Start Last Admin Trade Name Freq PRN Reason Stop Dose Admin Ibuprofen 600 mg 10/24/23 05:23 10/24/23 05:28 Ibuprofen 600 Mg Tablet PO 10/24/23 05:24 600 mg ONCE ONE Administration Medical Decision Making Medical Decision Making [facility] Narrative: Patient with minor right knee injury no signs of internal injuries at this time likely patient has right lateral collateral ligament strain Differential Diagnosis Differential Diagnoses: The differential diagnosis associated with the presentation includes Fracture/ligament injury Independent Interpretation I performed an independent interpretation of an: Plain X-Ray Interpretation: Negative X Radiology Impression Discussion of test interpretation with radiology: I have reviewed the radiologist's reading. Discharge Plan Discharge Clinical Impression: Right knee sprain Patient Disposition: Home, Self-Care Instructions: Knee Sprain (ED) Additional Instructions: Wear Yamil wrap/knee band to support your right knee Tylenol/Motrin for pain Follow-up with PCP/Orthopedics if not better in 2 weeks Activity as tolerated your x-rays negative for fracture Prescriptions: New ibuprofen 600 mg tablet 600 mg PO Q6H PRN (Reason: fever or pain) Qty: 30 0RF No Action doxycycline hyclate 100 mg capsule 100 mg PO BID 10 Days Qty: 20 0RF epinephrine [EpiPen 2-Tom] 0.3 mg/0.3 mL auto-injector 0.3 mg IM Q10M PRN (Reason: anaphylaxis) Qty: 2 3RF diphenhydramine HCl [Benadryl] 25 mg capsule 50 mg PO TID 3 Days Qty: 18 0RF famotidine [Pepcid] 20 mg tablet 20 mg PO BID 3 Days Qty: 6 0RF Referrals: Mendel Bella MD [Physician] - 2 weeks
[2023-10-24] MEDS: Ibuprofen 600 MG TABLET PO (05:28)
== END 2023-10-24 05:36 | disposition home or self-care (01) ==
PROVIDERS: Emergency Provider Internal Medicine
DX: S83.91XA Sprain of unspecified site of right knee, initial encounter (principal); Y35.891A Legal intervention involving other specified means, law enforcement official injured, initial encounter; Y93.39 Activity, other involving climbing, rappelling and jumping off; Y92.9 Unspecified place or not applicable; Y99.0 Civilian activity done for income or pay
CPT/HCPCS: 73564; 99283; 99284

== ENCOUNTER → 2023-10-28 09:24 | Outpatient (BNVA) | payer OTHER, SELFPAY | PROVIDERS: Visit Provider Internal Medicine | DX: S83.421A Sprain of lateral collateral ligament of right knee, initial encounter (principal); S74.11XA Injury of femoral nerve at hip and thigh level, right leg, initial encounter; Y93.02 Activity, running | CPT/HCPCS: 99203 ==

== ENCOUNTER → 2023-11-04 08:15 | Outpatient (BNVA) | payer OTHER, SELFPAY | PROVIDERS: Visit Provider Internal Medicine | DX: S83.421D Sprain of lateral collateral ligament of right knee, subsequent encounter (principal); Y93.02 Activity, running | CPT/HCPCS: 99213 ==

== ENCOUNTER → 2023-11-22 10:53 | Outpatient (BNVA) | payer OTHER, SELFPAY | PROVIDERS: Visit Provider Internal Medicine | DX: M25.561 Pain in right knee (principal); R20.0 Anesthesia of skin | CPT/HCPCS: 99213 ==